=== PATIENT | female | born 1985 | race Caucasian/White ===

== ENCOUNTER 2016-12-13 19:49 | Emergency (ER) | payer OTHER ==
[2016-12-13] MEDS ORDERED: AMOX/CLAV 875 MG/125 MG TABLET PO STA (20:03)
[2016-12-13] MEDS ORDERED: AMOX/CLAV 875 MG/125 MG TABLET PO ONE (20:16)
== END 2016-12-13 20:22 | disposition home or self-care (01) ==
DX: S61.251A Open bite of left index finger without damage to nail, initial encounter (principal); W55.01XA Bitten by cat, initial encounter; L03.012 Cellulitis of left finger; R03.0 Elevated blood-pressure reading, without diagnosis of hypertension
CPT/HCPCS: 99283; A9270

== ENCOUNTER 2017-04-15 12:01 | Outpatient (CLI) | payer OTHER ==
--- NOTE | 2017-04-15 19:42 | XRAY Report ---
THREE VIEW RIGHT FOOT: 04/15/2017 CLINICAL INDICATION: Foot pain. AP, lateral, oblique views of the right foot demonstrate no evidence of fracture or dislocation. The joint spaces are preserved. No radiopaque foreign body is seen in the soft tissues. IMPRESSION: NORMAL RIGHT FOOT. JOB #: [id number] EXT JOB #:[id number]
--- NOTE | 2017-04-15 19:43 | XRAY Report ---
THREE VIEW RIGHT KNEE: 04/15/2017 CLINICAL INDICATION: Pain. AP, lateral, sunrise views of the right knee demonstrate no evidence of fracture or dislocation. The joint spaces are preserved. No radiopaque foreign body is seen in the soft tissues. IMPRESSION: NORMAL RIGHT KNEE. JOB #: [id number] EXT JOB #:[id number]
== END 2017-04-15 12:02 | disposition home or self-care (01) ==
LOC: DI 12:01
PROVIDERS: ATTEND Nurse Practitioner Family
DX: M25.561 Pain in right knee (principal); M79.671 Pain in right foot

== ENCOUNTER 2017-05-16 08:00 | Outpatient (CLI) | payer OTHER | END 2017-05-16 08:01 | disposition home or self-care (01) | LOC: LAB.R 08:00 | PROVIDERS: ATTEND Registered Nurse | DX: R10.2 Pelvic and perineal pain (principal) | CPT/HCPCS: 87491; 87591 ==

== ENCOUNTER 2017-05-16 11:23 | Outpatient (CLI) | payer OTHER ==
[2017-05-17 11:16] LABS: PROGESTERONE <0.5 ng/mL
[2017-05-19 21:56] LABS: DHEA SULFATE 105 mcg/dL (23-266)
== END 2017-05-16 11:24 | disposition home or self-care (01) ==
LOC: LAB 11:23
PROVIDERS: ATTEND Registered Nurse
DX: F34.89 Other specified persistent mood disorders (principal); R10.2 Pelvic and perineal pain
CPT/HCPCS: 36415; 81599; 82627; 82670; 84144; 87491; 87591

== ENCOUNTER 2017-05-19 15:47 | Outpatient (CLI) | payer OTHER ==
--- NOTE | 2017-05-20 12:21 | Ultrasound Report ---
PELVIC ULTRASOUND: 05/19/2017 CLINICAL INDICATION: Pelvic pain. TECHNIQUE: Transabdominal pelvic ultrasound performed for global evaluation. Transvaginal pelvic ul trasound performed for detailed evaluation. Real-time scanning performed and static images obtained. FINDINGS: The uterus is retroverted, measuring 8.6 x 5.1 x 3.4 cm. The endometrial echo complex mark sures 2 mm. No focal myometrial lesion is present. The right ovary measures 2.0 x 1.6 x 1.0 cm, and is unremarkable. The left ovary measures 4.5 x 2.6 x 2.2 cm, and contains a 2.4 x 2.0 x 1.8 cm foll icle. No free fluid is present. IMPRESSION: LEFT OVARIAN FOLLICLE. JOB #: [id number] EXT JOB #:[id number]
== END 2017-05-19 15:48 | disposition home or self-care (01) ==
LOC: DI 15:47
PROVIDERS: ATTEND Registered Nurse
DX: R10.2 Pelvic and perineal pain (principal)
CPT/HCPCS: 76830; 76856

== ENCOUNTER 2018-03-04 10:15 | Outpatient (CLI) | payer OTHER ==
--- NOTE | 2018-03-04 11:16 | XRAY Report ---
Procedure Date: 03/04/2018 Accession Number: [id number] / [id number] Procedure: XR - Foot 3 View RT CPT Code: FULL RESULT: EXAM: Foot 3 View RT DATE: 03/04/2018 10:33 AM CLINICAL HISTORY: EXTREME PAIN RT FOOT COMPARISON: 04/15/2017. TECHNIQUE: 3 views. FINDINGS: Bones: Normal. No fractures or bone lesions. Joints: Normal. No subluxations. Soft Tissues: Normal. No soft tissue swelling. IMPRESSION: Normal foot radiography. If there is a specific focal pain, imaging could be reviewed with the radiologist for correlation. RADIA
== END 2018-03-04 10:16 | disposition home or self-care (01) ==
LOC: DI 10:15
PROVIDERS: ATTEND Podiatrist
DX: M79.671 Pain in right foot (principal)

== ENCOUNTER 2018-10-21 13:36 | Outpatient (CLI) | payer OTHER | END 2018-10-21 13:37 | disposition home or self-care (01) | LOC: LAB 13:36 | PROVIDERS: ATTEND Psychiatry & Neurology Neurology | DX: R56.9 Unspecified convulsions (principal) | CPT/HCPCS: 36415; 80175 ==

== ENCOUNTER 2020-02-14 17:35 | Outpatient (CLI) | payer OTHER ==
--- NOTE | 2020-02-14 17:56 | XRAY Report ---
PROCEDURE: Tib/Fib RT INDICATIONS: PAIN IN LOWER RIGHT LIMB TECHNIQUE: 2 views of the tibia and fibula were acquired. COMPARISON: None FINDINGS: Bones: No fractures or dislocations. No suspicious bony lesions. Soft tissues: No suspicious soft tissue calcifications or masses. IMPRESSION: Unremarkable radiographic examination of right lower leg. Reviewed by: Garrick Banuelos MD on 02/14/2020 5:55 PM PDT Approved by: Garrick Banuelos MD on 02/14/2020 5:55 PM PDT Station ID: [id number]
== END 2020-02-14 17:36 | disposition home or self-care (01) ==
LOC: DI.S 17:35
PROVIDERS: ATTEND Registered Nurse
DX: M79.604 Pain in right leg (principal)

== ENCOUNTER 2020-05-19 14:50 | Outpatient (CLI) | payer OTHER | END 2020-05-19 14:51 | disposition home or self-care (01) | LOC: LAB 14:50 | PROVIDERS: ATTEND Psychiatry & Neurology Neurology | DX: R56.9 Unspecified convulsions (principal) | CPT/HCPCS: 36415; 80175 ==

== ENCOUNTER 2020-12-15 09:54 | Outpatient (CLI) | payer OTHER ==
[2020-12-15 15:03] LABS: BASOPHILS % (AUTO) 0.5 %; EOSINOPHILS # (AUTO) 0.5 10^3/uL (0.0-0.7); EOSINOPHILS % (AUTO) 7.5 %; HGB - HEMOGLOBIN 12.6 g/dL (12.0-16.0); LYMPHOCYTES # (AUTO) 1.8 10^3/uL (1.5-3.5); LYMPHOCYTES % (AUTO) 29.8 %; MEAN CORPUSCULAR HEMOGLOBIN 29.9 pg (27.0-31.0); MEAN CORPUSCULAR HGB CONC 30.7 g/dL (32.0-36.0); MEAN CORPUSCULAR VOLUME 97.2 fL (81.0-99.0); MEAN PLATELET VOLUME 10.5 fL (7.9-10.8); MONOCYTES # (AUTO) 0.4 10^3/uL (0.0-1.0); NEUTROPHILS # (AUTO) 3.4 10^3/uL (1.5-6.6); PLT - PLATELET COUNT 313 10^3/uL (130-450); RED BLOOD COUNT 4.22 10^6/uL (4.20-5.40); RED CELL DISTRIBUTION WIDTH 12.4 % (12.0-15.0); WHITE BLOOD COUNT 6.1 x10^3/uL (4.8-10.8)
[2020-12-15 15:45] LABS: ALBUMIN 4.6 g/dL (3.2-5.5); ALBUMIN/GLOBULIN RATIO 1.4 (1.0-2.2); ALKALINE PHOSPHATASE 58 IU/L (42-121); ALT ALANINE AMINOTRANSFERASE 16 IU/L (10-60); AST ASPARTATE AMINOTRANSFERASE 19 IU/L (10-42); BILIRUBIN,TOTAL 0.6 mg/dL (0.2-1.0); BUN - BLOOD UREA NITROGEN 26 mg/dL (6-20); CALCIUM 9.4 mg/dL (8.5-10.3); CARBON DIOXIDE - CO2 27 mmol/L (21-32); CHLORIDE 105 mmol/L (101-111); CHOL/HDL RATIO 3.7 (<4.4); CHOLESTEROL 192 mg/dL; GFR - MDRD 62 (>89); GLUCOSE 97 mg/dL (70-100); HDL CHOLESTEROL 52 mg/dL; LDL CHOLESTEROL,CALCULATED 125 mg/dL; LDL/HDL RATIO 2.4 (<4.4); POTASSIUM 4.1 mmol/L (3.5-5.0); SODIUM 139 mmol/L (135-145); TOTAL PROTEIN 7.8 g/dL (6.7-8.2); TRIGLYCERIDES 76 mg/dL; VLDL CHOLESTEROL 15 mg/dL
[2020-12-15 15:58] LABS: THYROID STIMULATING HORMONE 1.33 uIU/mL (0.34-5.60)
[2020-12-15 20:29] LABS: ESTIMATED AVERAGE GLUCOSE 105 mg/dL (70-100); HEMOGLOBIN A1c% 5.3 % (4.27-6.07)
== END 2020-12-15 09:55 | disposition home or self-care (01) ==
LOC: LAB.S 09:54
PROVIDERS: ATTEND Registered Nurse
DX: G40.909 Epilepsy, unspecified, not intractable, without status epilepticus (principal); Z13.1 Encounter for screening for diabetes mellitus
CPT/HCPCS: 36415; 80053; 80061; 83036; 83721; 84443; 85025

== ENCOUNTER 2021-01-18 20:03 | Emergency (ER) | payer OTHER ==
[2021-01-18 20:13] VITALS: BP 124/85
[2021-01-18] MEDS ORDERED: TETANUS/DIPHTHERIA/PERTUSSIS 0.5 ML SYRINGE IM ONE (20:14)
[2021-01-18] MEDS ORDERED: HYDROcod/ACETAM 5/325 MG TABLET PO STA (20:14)
[2021-01-18] MEDS ORDERED: AMOX/CLAV 875 MG/125 MG TABLET PO STA (20:14)
--- NOTE | 2021-01-18 20:18 | ED Physician Documentation ---
History of Present Illness - Stated complaint Stated Complaint: FACE INJURY - Chief complaint Chief Complaint: Trauma Hd/Nk - History obtained from History obtained from: Patient - Additonal information Additional information: She was bucked off her horse, landed back first into the ground and hit her left elbow and then the horses hoof hit her in the jaw. She has a wound on the inside of the mouth and jaw pain. No possibility of . No other head injury or loss of consciousness. No headache. 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 - Present Medications Home Medications: Ambulatory Orders Medication Instructions Recorded Confirmed Amox/Clav 875/125 [Augmentin] 1 each PO Q12H #10 tablet 01/18/21 HYDROcod/ACETAM 5/325 [[place] 5/325] 1 - 2 tab PO Q6H PRN #10 tablet 01/18/21 lamoTRIgine [Lamictal] 150 mg PO BID 01/18/21 01/18/21 - Allergies Allergies/Adverse Reactions: Allergies Allergy/AdvReac Type Severity Reaction Status Date / Time fluconazole Allergy Anaphylaxis Verified 01/18/21 20:13 - Social History Does the pt smoke?: No Smoking Status: Never smoker Does the pt drink ETOH?: No Does the pt have substance abuse?: No - Immunizations Immunizations are current?: Yes Immunizations: TDAP current <10years - POLST Patient has POLST: No PD ED PE NORMAL - Vitals Vital signs reviewed: Yes - General General: Alert and oriented X 3, No acute distress - HEENT HEENT: PERRL, EOMI, Other (About a 5 mm puncture wound on the inner lip low down. Jaw is mildly tender but has good range of motion and no other facial bony tenderness.) - Neck Neck: Supple, no meningeal sign, No bony TTP - Cardiac Cardiac: RRR, No murmur - Respiratory Respiratory: No respiratory distress, Clear bilaterally - Abdomen Abdomen: Non tender - Back Back: No CVA TTP, Other (Mild mid lumbar spine tenderness.) - Derm Derm: Normal color, Warm and dry - Extremities Extremities: Other (There is some bruising on the medial side of the left elbow and some tenderness over the radial head and olecranon which is mild but full range of motion.) - Neuro Neuro: Alert and oriented X 3, 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 Also kind of a puncture wound/tissue avulsion on the inside of the lower lip. X-rays of the mandible, left elbow, and lumbar spine obtained. I am prescribing a short course of short-acting opioid pain medication for this patient. 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 I have discussed that the opioids are for short term therapy only, and will not be refilled from the ED. Departure - Departure Disposition: 01 Home, Self Care Clinical Impression: Lip laceration Qualifiers: Encounter type: initial encounter Qualified Code(s): S01.511A - Laceration without foreign body of lip, initial encounter Contusion of mandibular joint area Qualifiers: Encounter type: initial encounter Qualified Code(s): S00.83XA - Contusion of other part of head, initial encounter Left elbow contusion Qualifiers: Encounter type: initial encounter Qualified Code(s): S50.02XA - Contusion of left elbow, initial encounter Back contusion Qualifiers: Encounter type: initial encounter Laterality: unspecified laterality Qualified Code(s): S20.229A - Contusion of unspecified back wall of thorax, initial encounter Condition: Good Instructions: ED Low Back Pain Injury, ED Laceration Mouth Prescriptions: Amox/Clav 875/125 [Augmentin] 1 each PO Q12H #10 tablet HYDROcod/ACETAM 5/325 [[place] 5/325] 1 - 2 tab PO Q6H PRN #10 tablet PRN Reason: Pain Comments: I think the lip laceration will heal pretty quickly, until it closes over though I would recommend that you do not eat anything that would create small chunks that could go into the hole. This would include crackers and tortilla chips. You can rinse it out with water and generally do a normal dental hygiene routine. I am prescribing a short course of narcotic pain medication for you. These are potentially dangerous and addictive medications that should be used carefully. These medications may constipate you. Take an jjiq-dqx-gstyxoa stool softener (docusate) twice daily with plenty of water while taking these medications. If you go 24 hours without a bowel movement, take piuk-oqy-wfppocz miralax, per package instructions. Do not drink or drive while taking these medications. If you received narcotic or sedating medications while in the emergency department, do not drive for 24 hours. Store this medication in a safe, secure place and out of reach of children. It is a violation of federal law to give or sell this medication to another person or to use in a manner other than prescribed. The ED will not refill narcotic prescriptions, including prescriptions lost or stolen. To dispose of unwanted medications: 1. [facility] at [address] in [place] has a medication drop box. They accept prescription medications (in pill form) Friday through Friday 9:00 a.m. to 5:00 p.m. 2. The [facility] [employer] accepts prescription medications (in pill form only) for disposal year round. Call for more information. 3. Contact the [facility] for the next [facility] sponsored prescription drug collection event. , [phone], or [phone]; Note that many narcotic pain relievers also contain Tylenol/acetaminophen. Please ensure that your total dose of acetaminophen from all sources does not exceed 3 g (3000 mg) per day.
[2021-01-18] MEDS ORDERED: HYDROcod/ACET 5/325 Prepack 4 PO STA (21:28)
--- NOTE | 2021-01-18 22:01 | XRAY Report ---
PROCEDURE: Elbow 3 View LT INDICATIONS: elbow inj TECHNIQUE: 3 views of the elbow were acquired. COMPARISON: None FINDINGS: Bones: No fractures or dislocations. No suspicious bony lesions. Soft tissues: No elbow joint effusion. No suspicious soft tissue calcifications. IMPRESSION: No definite fracture however follow-up radiographs in 10 days could be performed if the patient's sym ptoms do not improve to exclude occult fracture/assess for healing sclerosis. Reviewed by: Ayad Hardy MD on 01/18/2021 10:00 PM PDT Approved by: Ayad Hardy MD on 01/18/2021 10:00 PM PDT Station ID: [id number]
--- NOTE | 2021-01-18 22:02 | XRAY Report ---
PROCEDURE: Lumbar Spine 2 View INDICATIONS: back inj TECHNIQUE: 3 views of the lumbar spine were acquired. COMPARISON: None. FINDINGS: No fracture. Scattered multilevel endplate spurring and diffuse facet arthropathy. Mild narrowing of the L5-S1 disc space. Mild bilateral hip joint degeneration. Bilateral sacroiliac s clerosis and spurring. IMPRESSION: No fracture. Lower lumbar spondylosis and facet disease. Reviewed by: Ayad Hardy MD on 01/18/2021 10:01 PM PDT Approved by: Ayad Hardy MD on 01/18/2021 10:01 PM PDT Station ID: [id number]
--- NOTE | 2021-01-18 22:04 | XRAY Report ---
PROCEDURE: Mandible Bilat INDICATIONS: jaw inj TECHNIQUE: 7 views of the mandible were acquired. COMPARISON: None. FINDINGS: Bones: No fractures or dislocations. No suspicious bony lesions. Soft tissues: Visualized sinuses appear clear. No suspicious soft tissue densities. IMPRESSION: No radiographically identified fracture. If there is persistent high clinical suspicion, CT maxillofa cial could be performed. Reviewed by: Ayad Hardy MD on 01/18/2021 10:03 PM PDT Approved by: Ayad Hardy MD on 01/18/2021 10:03 PM PDT Station ID: [id number]
== END 2021-01-18 22:14 | disposition home or self-care (01) ==
LOC: ED 20:03
DX: S01.511A Laceration without foreign body of lip, initial encounter (principal); S00.83XA Contusion of other part of head, initial encounter; S50.02XA Contusion of left elbow, initial encounter; S30.0XXA Contusion of lower back and pelvis, initial encounter; V80.010A Animal-rider injured by fall from or being thrown from horse in noncollision accident, initial encounter; W55.12XA Struck by horse, initial encounter; Y93.52 Activity, horseback riding; Z23 Encounter for immunization
CPT/HCPCS: 70110; 72100; 73080; 90471; 90715; 99281; 99283; A9270

== ENCOUNTER 2021-12-04 17:14 | Outpatient (CLI) | payer MEDICAID ==
--- NOTE | 2021-12-05 09:42 | XRAY Report ---
PROCEDURE: Cervical Spine 2 View INDICATIONS: Bilateral hand numbness. TECHNIQUE: 3 view(s) of the cervical spine were acquired. COMPARISON: None. FINDINGS: Bones: No fractures or dislocations to the C7 level. The lateral masses of C1 appear intact on the odontoid view. No suspicious bony lesions. Intervertebral disc height is normal at all levels. Soft tissues: No prevertebral soft tissue swelling. IMPRESSION: No fracture to the level of the C7 vertebral body. No acute osseous lesion. If there is continued clinical concern for pathology, then MRI should be considered for further evaluation. Reviewed by: Callie Grove MD, PhD on 12/05/2021 9:41 AM PDT Approved by: Callie Grove MD, PhD on 12/05/2021 9:41 AM PDT Station ID: [id number]
--- NOTE | 2021-12-05 09:43 | XRAY Report ---
PROCEDURE: Knee 3 View RT INDICATIONS: Pain TECHNIQUE: 3 views of the right knee(s) were acquired. COMPARISON: None. FINDINGS: Bones: No fractures or dislocations. No suspicious bony lesions. Soft tissues: No joint effusion. No suspicious soft tissue calcifications. IMPRESSION: No fracture. No osseous lesion. If symptoms and/or clinical concern for pathology persis ts, further assessment with repeat plain film radiographs (7-10 days) or advanced imaging (CT, MR, naheed ne scan) should be considered. Reviewed by: Callie Grove MD, PhD on 12/05/2021 9:42 AM PDT Approved by: Callie Grove MD, PhD on 12/05/2021 9:42 AM PDT Station ID: [id number]
--- NOTE | 2021-12-05 09:44 | XRAY Report ---
PROCEDURE: Shoulder 3 View RT INDICATIONS: Pain TECHNIQUE: 3 views of the shoulder were acquired. COMPARISON: None. FINDINGS: Bones: No fractures or dislocations. No suspicious bony lesions. Visualized ribs appear intact. Mi ld right acromioclavicular joint osteoarthritis. Soft tissues: No suspicious soft tissue calcifications. IMPRESSION: Mild right acromioclavicular joint osteophytosis. No fracture. No acute osseous lesion. If symptoms and/or clinical concern for pathology persists, fur ther assessment with repeat plain film radiographs (7-10 days) or advanced imaging (CT, MR, bone scan ) should be considered. Reviewed by: Callie Grove MD, PhD on 12/05/2021 9:42 AM PDT Approved by: Callie Grove MD, PhD on 12/05/2021 9:42 AM PDT Station ID: [id number]
== END 2021-12-04 17:15 | disposition home or self-care (01) ==
LOC: DI.S 17:14
PROVIDERS: ATTEND Family Medicine
DX: M19.011 Primary osteoarthritis, right shoulder (principal); M25.561 Pain in right knee; R20.0 Anesthesia of skin

== ENCOUNTER 2022-01-16 18:22 | Emergency (ER) | payer MEDICAID ==
--- NOTE | 2022-01-16 18:37 | ED Physician Documentation ---
PD HPI LOWER EXT INJURY - Stated complaint Stated Complaint: L ANKLE PX - Chief complaint Chief Complaint: Ext Problem - History obtained from History obtained from: Patient (She is been having left ankle pain for the last 5 weeks or so. There was no trauma until today when she slipped and fell and made it worse. Also injured the left fourth finger. 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 - Present Medications Home Medications: Ambulatory Orders Medication Instructions Recorded Confirmed Amox/Clav 875/125 [Augmentin] 1 each PO Q12H #10 tablet 01/18/21 HYDROcod/ACETAM 5/325 [[place] 5/325] 1 - 2 tab PO Q6H PRN #10 tablet 01/18/21 lamoTRIgine [Lamictal] 150 mg PO BID 01/18/21 01/18/21 - Allergies Allergies/Adverse Reactions: Allergies Allergy/AdvReac Type Severity Reaction Status Date / Time fluconazole Allergy Anaphylaxis Verified 01/16/22 18:32 - Social History Does the pt smoke?: No Smoking Status: Never smoker Does the pt drink ETOH?: No Does the pt have substance abuse?: No - Immunizations Immunizations are current?: Yes Immunizations: TDAP current <10years - POLST Patient has POLST: No PD ED PE NORMAL - Vitals Vital signs reviewed: Yes - General General: Alert and oriented X 3, No acute distress - HEENT HEENT: PERRL, EOMI - Extremities Extremities: Other (Tender over the PIP of the left fourth finger with mildly limited range of motion there but no ligamentous laxity. Tender over the lateral malleolus of the left ankle more than the ATFL and talar dome. No posterior tenderness, no foot tenderness, no tenderness of the plantar fascia.) - Neuro Neuro: Alert and oriented X 3, Normal speech Results - Vitals Vitals: Vital Signs - 24 hr 01/16/22 18:29 Temperature 36.2 C L Heart Rate 85 Respiratory 16 Rate Blood Pressure 135/97 H O2 Saturation 99 Oxygen O2 Source Room air - Rads (name of study) L 4th finger Radiology: EMP read contemporaneously (ossification DIP, she is not tender there. Pain is at PIP.) L ankle 3v Radiology: EMP read contemporaneously (Nad) Departure - Departure Disposition: Home, Self Care Clinical Impression: Left ankle pain, Sprain of finger of left hand Condition: Good Record reviewed to determine appropriate education?: Yes Instructions: ED Sprain Finger, ED Sprain Ankle Follow-Up: Ahmet Greene, DPM [Physician No Access] - Comments: Tylenol or ibuprofen for pain. Return if worse. Reasonable to followup with podiatry given ongoing pain.
--- NOTE | 2022-01-16 19:25 | XRAY Report ---
PROCEDURE: Ankle 3 View LT INDICATIONS: ankle inj TECHNIQUE: 3 views of the ankle were acquired. COMPARISON: None FINDINGS: Bones: No fractures or dislocations. Ankle mortise is normally aligned. No suspicious bony lesions . Soft tissues: No tibiotalar joint effusion. Achilles tendon appears normal. IMPRESSION: No visualized acute fracture or dislocation. However, occult injury cannot be excluded. Recommend short interval imaging follow-up in 7-10 days as clinically indicated for additional evalua tion. Reviewed by: Jerica Jauregui MD on 01/16/2022 7:24 PM PDT Approved by: Jerica Jauregui MD on 01/16/2022 7:24 PM PDT Station ID: [id number]
--- NOTE | 2022-01-16 19:26 | XRAY Report ---
PROCEDURE: Finger(s) LT INDICATIONS: L 4th finger inj TECHNIQUE: AP hand, 3 views of the fourth finger(s) acquired. COMPARISON: None FINDINGS: Bones: Rounded ossification is noted overlying the fourth DIP joint. No suspicious bony lesions. Soft tissues: No suspicious soft tissue calcifications. IMPRESSION: Rounded ossification at the fourth DIP joint. Avulsion fracture cannot be excluded. Recommend follow- up imaging in 7-10 days. Reviewed by: Jerica Jauregui MD on 01/16/2022 7:24 PM PDT Approved by: Jerica Jauregui MD on 01/16/2022 7:24 PM PDT Station ID: [id number]
[2022-01-16 19:45] VITALS: BP 119/75
== END 2022-01-16 19:45 | disposition home or self-care (01) ==
LOC: ED 18:22
DX: S93.402A Sprain of unspecified ligament of left ankle, initial encounter (principal); S63.615A Unspecified sprain of left ring finger, initial encounter; W01.0XXA Fall on same level from slipping, tripping and stumbling without subsequent striking against object, initial encounter
CPT/HCPCS: 99282; 99284

== ENCOUNTER 2022-05-05 21:17 | Emergency (ER) | payer MEDICAID ==
[2022-05-05 21:27] VITALS: BP 133/79
--- NOTE | 2022-05-05 21:30 | ED Physician Documentation ---
History of Present Illness - Stated complaint Stated Complaint: RT FOOT PX - Additonal information Additional information: She presents here today for pain on the dorsum of her foot. Her 1400 pound horse stepped on the foot 2 days ago. Since then she has had swelling and ecchymosis. She is ambulatory though painful. She does have a history of previous ankle fracture in this extremity. 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 - Present Medications Home Medications: Ambulatory Orders Medication Instructions Recorded Confirmed No Known Home Medications 05/05/22 05/05/22 - Allergies Allergies/Adverse Reactions: Allergies Allergy/AdvReac Type Severity Reaction Status Date / Time fluconazole Allergy Anaphylaxis Verified 05/05/22 21:27 - Social History Does the pt smoke?: No Smoking Status: Never smoker Does the pt drink ETOH?: No Does the pt have substance abuse?: No - Immunizations Immunizations are current?: Yes Immunizations: TDAP current <10years - POLST Patient has POLST: No PD ED PE EXPANDED - Extremities Extremities: Right foot (Mild swelling and moderate ecchymosis on the dorsum of the right foot extending from the mid to lateral side. Most the tenderness is elicited over the fourth and fifth metacarpals. Mild pain at the base of the fifth metacarpal. Full range of motion of the ankle in all planes. 2+ DP pulse) Results - Vitals Vitals: Vital Signs - 24 hr 05/05/22 21:25 Temperature 36.3 C L Heart Rate 79 Respiratory 17 Rate Blood Pressure 133/79 H O2 Saturation 100 Oxygen O2 Source Room air - Rads (name of study) Right foot Radiology: EMP read indepedently (No acute fracture osseous lesion or dislocation) PD MEDICAL DECISION MAKING - ED course Complexity details: reviewed results, considered differential, d/w patient ED course: 36-year-old female presents emergency department for evaluation of 2 days right foot pain that began after her horse accidentally stepped on the top of her foot. She describes more of a glancing blow than a direct injury. She has been ambulatory on the foot. My interpretation of the initial x-ray imaging is that there is no acute fracture. I favor she likely has a contusion given that she is bearing nearly full weight on the foot and has a minimal limp. Routine care and emergent return precautions were discussed. Departure - Departure Disposition: 01 Home, Self Care Clinical Impression: Contusion of right foot Qualifiers: Encounter type: initial encounter Qualified Code(s): S90.31XA - Contusion of right foot, initial encounter Condition: Stable Instructions: ED Contusion Lower Extr Ch Comments: Vianca the x-ray of your foot looks good to me. It does not appear that there are any broken bones. If the radiologist finds otherwise we will notify you. However it looks like the pain is simply a contusion or bruising. I would expect this to be getting better over the next 1 to 2 weeks. She can take Tylenol Motrin [id number] for any discomfort. Return to the emergency department if you find that the pain is not improving as you would anticipate over the next few weeks or sooner if you have any concerns of severe pain, redness swelling or concerns of infection.
--- NOTE | 2022-05-05 21:49 | XRAY Report ---
PROCEDURE: Foot 3 View RT INDICATIONS: pain TECHNIQUE: 3 views of the foot were acquired. COMPARISON: 03/04/2018. FINDINGS: Bones: No fractures or dislocations. There are 2 surgical screws within the second metatarsal head. No suspicious bony lesions. Soft tissues: No tibiotalar joint effusion. Achilles tendon appears normal. IMPRESSION: 1. No fracture or dislocation. Reviewed by: Jim Zhao MD on 05/05/2022 9:48 PM PDT Approved by: Jim Zhao MD on 05/05/2022 9:48 PM PDT Station ID: [id number]
== END 2022-05-05 21:52 | disposition home or self-care (01) ==
LOC: ED 21:17
DX: S90.31XA Contusion of right foot, initial encounter (principal); W55.19XA Other contact with horse, initial encounter
CPT/HCPCS: 99281; 99283

== ENCOUNTER 2022-08-23 10:07 | Emergency (ER) | payer MEDICAID ==
[2022-08-23 10:39] LABS: BASOPHILS % (AUTO) 0.2 %; EOSINOPHILS # (AUTO) 0.3 10^3/uL (0.0-0.7); EOSINOPHILS % (AUTO) 3.8 %; HCT - HEMATOCRIT 40.4 % (37.0-47.0); HGB - HEMOGLOBIN 12.8 g/dL (12.0-16.0); LYMPHOCYTES # (AUTO) 1.9 10^3/uL (1.5-3.5); LYMPHOCYTES % (AUTO) 22.4 %; MEAN CORPUSCULAR HGB CONC 31.7 g/dL (32.0-36.0); MEAN CORPUSCULAR VOLUME 94.6 fL (81.0-99.0); MONOCYTES # (AUTO) 0.6 10^3/uL (0.0-1.0); MONOCYTES % (AUTO) 6.5 %; NEUTROPHILS # (AUTO) 5.7 10^3/uL (1.5-6.6); NEUTROPHILS % (AUTO) 66.9 %; PLT - PLATELET COUNT 265 10^3/uL (130-450); RED BLOOD COUNT 4.27 10^6/uL (4.20-5.40); RED CELL DISTRIBUTION WIDTH 12.5 % (12.0-15.0); WHITE BLOOD COUNT 8.6 x10^3/uL (4.8-10.8)
--- NOTE | 2022-08-23 10:40 | XRAY Report ---
PROCEDURE: Chest 1 View X-Ray INDICATIONS: Chest pain TECHNIQUE: One view of the chest was acquired. COMPARISON: None. FINDINGS: Surgical changes and devices: None. Lungs and pleura: No pleural effusions or pneumothorax. Lungs are clear. Mediastinum: Mediastinal contours appear normal. Heart size is normal. Bones and chest wall: No suspicious bony lesions. Overlying soft tissues appear unremarkable. IMPRESSION: No evidence acute pulmonary process. Reviewed by: Rambo Briscoe MD on 08/23/2022 10:38 AM [facility] Approved by: Rambo Briscoe MD on 08/23/2022 10:38 AM [facility] Station ID: [id number]
--- NOTE | 2022-08-23 10:42 | ED Physician Documentation ---
PD HPI CHEST PAIN - Stated complaint Stated Complaint: CHEST PAIN, RIB PAIN, SHORTNESS OF BREATH - Chief complaint Chief Complaint: Cardiac - History obtained from History obtained from: Patient - History of Present Illness Timing - onset: How many days ago (has had intrascapular pain for the past 4 days, worse with lifting and movement. Today with substernal to right chest pain, upper abd pain.) Timing - onset during: Rest Timing - duration: Hours (the right abd/chest pain has bee fro several hours this morning.) Timing - details: Abrupt onset, Still present, Waxing and waning Quality: Aching, Sharp, Pain Location: Right chest, Epigastric (to right upper abd) Radiation: Back Improved by: No: Rest Worsened by: Inspiration, Movement. No: Eating Associated symptoms: Shortness of air. No: Nausea, Vomiting, Feeling faint / dizzy, Palpitations, Cough Similar symptoms before: Has not had sx before Recently seen: Not recently seen Review of Systems Constitutional: denies: Fever, Chills Nose: denies: Rhinorrhea / runny nose, Congestion Throat: denies: Sore throat Cardiac: denies: Palpitations, Pedal edema, Calf pain Respiratory: denies: Cough, Wheezing GI: denies: Nausea, Vomiting, Diarrhea Skin: denies: Rash, Lesions Neurologic: denies: Focal weakness, Numbness, Near syncope PD PAST MEDICAL HISTORY - Past Medical History Past Medical History: Yes Cardiovascular: None Respiratory: None Neuro: Seizure disorder Endocrine/Autoimmune: None - Past Surgical History 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 - Present Medications Home Medications: Ambulatory Orders Medication Instructions Recorded Confirmed HYDROcod/ACETAM 5/325 [Arcade 5/325] 1 ea PO Q6H PRN #18 tablet 08/23/22 Meloxicam [Mobic] 7.5 mg PO BID 10 Days #20 tablet 08/23/22 lamoTRIgine [Lamictal] 150 mg PO BID 08/23/22 08/23/22 - Allergies Allergies/Adverse Reactions: Allergies Allergy/AdvReac Type Severity Reaction Status Date / Time fluconazole Allergy Anaphylaxis Verified 08/23/22 10:19 - Social History Does the pt smoke?: No Smoking Status: Never smoker Does the pt drink ETOH?: No Does the pt have substance abuse?: No - Immunizations Immunizations are current?: Yes Immunizations: TDAP current <10years - POLST Patient has POLST: No PD ED PE NORMAL - Vitals Vital signs reviewed: Yes - General General: Alert and oriented X 3, No acute distress, Well developed/nourished - Neck Neck: Supple, no meningeal sign, No adenopathy - Cardiac Cardiac: RRR, No murmur - Respiratory Respiratory: No respiratory distress, Clear bilaterally - Abdomen Abdomen: Normal bowel sounds, Soft, Non distended, No organomegaly, Other (some tenderness upper abd right to epigastric area without guarding nor rebound. ) - Back Back: No CVA TTP, No spinal TTP - Derm Derm: Normal color, Warm and dry - Extremities Extremities: No edema, No calf tenderness / cord - Neuro Neuro: Alert and oriented X 3, No motor deficit, Normal speech Results - Vitals Vitals: Vital Signs - 24 hr 08/23/22 08/23/22 08/23/22 12:30 13:00 13:21 Heart Rate 69 64 67 Respiratory 15 14 15 Rate Blood Pressure 94/70 109/74 109/74 O2 Saturation 98 100 100 Oxygen O2 Source Room air - EKG (time done) 10:21 Rate: Rate (enter#) (76) Rhythm: NSR [place]: Normal Intervals: Normal DE QRS: Normal Ischemia: Normal ST segments. No: ST elevation c/w ischemia, ST depression Compare to prior EKG: Old EKG unavailable - Labs Labs: Laboratory Tests 08/23/22 08/23/22 08/23/22 10:30 10:30 10:30 WBC 8.6 RBC 4.27 Hgb 12.8 Hct 40.4 MCV 94.6 MCH 30.0 MCHC 31.7 L RDW 12.5 Plt Count 265 MPV 10.0 Neut # (Auto) 5.7 Lymph # (Auto) 1.9 [place] # (Auto) 0.6 Eos # (Auto) 0.3 Baso # (Auto) 0.0 Absolute Nucleated RBC 0.00 Nucleated RBC % 0.0 Sodium 134 L Potassium 3.7 Chloride 102 Carbon Dioxide 23 Anion Gap 9.0 BUN 17 Creatinine 0.8 Estimated GFR (MDRD) 80 L Glucose 86 Calcium 8.9 Total Bilirubin 0.7 AST 18 ALT 14 Alkaline Phosphatase 61 Troponin I High Sens < 2.3 L Total Protein 7.3 Albumin 4.2 Globulin 3.1 Albumin/Globulin Ratio 1.4 Lipase 32 - Rads (name of study) chest xray Radiology: Prelim report reviewed, EMP read indepedently (no cardiopulmonary process acutely), See rad report RUQ abd U/S Radiology: Prelim report reviewed (unremarkable abd ultrasound. GB without stones nor wall thickening. ), See rad report PD Medical Decision Making - ED course Complexity details: reviewed old records (No TIANNA form and external pharmacy review does not show pain meds scripts. ), reviewed results (labs and imaging are negative which excludes more significant causes. Still to consider musculoskeletal. Consider GB spasm without stones though this is fairly uncommon. 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 However now with abd/chest pain and stomach/gallbladder pain can present to the back. Will want to assess for that. Also to eval for heart/lung causes with ECG/CXR/trop. She is low risk by PERC rules so PE excluded. No recent illness, so not sounding pleuritic and is not that character of the pain. Departure - Departure Disposition: Home, Self Care Clinical Impression: Chest pain, Back pain Condition: Stable Record reviewed to determine appropriate education?: Yes Instructions: ED Chest Pain Atypical Unkn Cause Prescriptions: Meloxicam [Mobic] 7.5 mg PO BID 10 Days #20 tablet HYDROcod/ACETAM 5/325 [Arcade 5/325] 1 ea PO Q6H PRN #18 tablet PRN Reason: Pain Comments: Its unclear the cause of your pain. Your ultrasound did not show any acute abnormalities of the gallbladder kidney area. Your blood tests are normal as well without any signs of inflammation of the liver or pancreas. Your EKG and troponin test show no signs of heart injury/heart attack. At this point would presume musculoskeletal pain coming from your back and likely irritating the nerve that wraps around. We can treat this with anti- inflammatories of meloxicam twice daily with food for the next 7 to 10 days. To that add Tylenol every 4-6 hours if needed for pain or hydrocodone if needed for worse pain. Avoid heavy lifting and repetitive motion and such over the next several days to week as best you can. Recheck if not improved well over the next several days to week. Recheck if new symptoms develop such as fever, rash, cough. Also follow-up/recheck if persisting symptoms especially if timed around eating as there could be consideration for gallbladder spasms even though you do not have stones. This is fairly uncommon though. I sent your prescriptions to [facility] pharmacy. I am prescribing a short course of narcotic pain medication for you. These are potentially dangerous and addictive medications that should be used carefully. These medications may constipate you. Take an omim-[id number]-[id number] stool softener such as docusate twice daily with plenty of water while taking these medications. If you go 24 hours without a bowel movement, take svuk-wwd-[id number] MiraLAX, per package instructions. Do not drink or drive while taking these medications. If you received narcotic or sedating medications while in the emergency department do not drive for 24 hours. Store this medication in a safe, secure place and out of reach of children. It is a violation of federal law to give or sell this medication to another person or to use in a manner other than prescribed. The ED will not refill narcotic prescriptions, including prescriptions lost or stolen. You can dispose of unwanted medications at the [facility]'s office or at several pharmacies such as [facility]. Discharge Date/Time: 08/23/22 13:21
[2022-08-23 10:54] LABS: ALBUMIN 4.2 g/dL (3.2-5.5); ALBUMIN/GLOBULIN RATIO 1.4 (1.0-2.2); BILIRUBIN,TOTAL 0.7 mg/dL (0.2-1.0); CALCIUM 8.9 mg/dL (8.5-10.3); CREATININE 0.8 mg/dL (0.4-1.0); POTASSIUM 3.7 mmol/L (3.5-5.0); TOTAL PROTEIN 7.3 g/dL (6.7-8.2)
[2022-08-23] MEDS ORDERED: ACETAMINOPHEN 325 MG TABLET PO STA (11:09)
[2022-08-23] MEDS ORDERED: KETOROLAC 15 MG/ML VIAL IVP STA (11:09)
[2022-08-23 13:12] VITALS: BP 109/74
--- NOTE | 2022-08-23 13:28 | Ultrasound Report ---
PROCEDURE: Abdomen Limited INDICATIONS: upper abd/right back pain TECHNIQUE: Real-time focused scanning was performed of the abdomen, with image documentation. COMPARISON: None FINDINGS: Liver is unremarkable. Normal echo pattern. Gallbladder is unremarkable. No stones or wall thickening or pain. Biliary tree is normal in caliber. Common hepatic duct measures 4.5 mm. Pancreas is not well seen secondary to overlying bowel gas. Normal sized right kidney with no hydronephrosis. IMPRESSION: Unremarkable right upper quadrant ultrasound. Reviewed by: Rambo Briscoe MD on 08/23/2022 1:27 PM PST Approved by: Rambo Briscoe MD on 08/23/2022 1:27 PM PST Station ID: [id number]
== END 2022-08-23 13:21 | disposition home or self-care (01) ==
LOC: ED 10:07
DX: R07.9 Chest pain, unspecified (principal); M54.9 Dorsalgia, unspecified; R10.9 Unspecified abdominal pain
CPT/HCPCS: 36415; 71045; 76705; 80053; 83690; 84484; 85025; 93005; 96374; 99284; A9270

== ENCOUNTER 2023-06-02 13:41 | Outpatient (CLI) | payer MEDICAID ==
--- NOTE | 2023-06-02 18:19 | Ultrasound Report ---
PROCEDURE: Pelvic w/Transvaginal INDICATIONS: R LOWER QUAD ABD PAIN TECHNIQUE: Real-time scanning was performed of the pelvic organs, with image documentation. Additional endovagi nal scanning was necessary due to incomplete visualization of the adnexal and endometrial structures by transabdominal scanning. COMPARISON: 05/19/2017 FINDINGS: Uterus: Uterus is anteverted and normal in size at 8.6 x 4.3 x 5.2 cm. The myometrium is heterogene ous. The endometrium measures 3 mm in combined thickness. There is a midline anterior intramural ut erine fibroid measuring 1.0 x 1.1 x 1.2 cm. This was not identified on the prior study. Ovaries: The right ovary measures 3.0 x 2.4 x 2.8 cm, with a calculated ovarian volume of 10.5 cc. The left ovary measures 2.8 x 1.1 x 1.3 cm, with a calculated ovarian volume of 2.1 cc. The ovaries have a normal sonographic appearance. Less than 12 follicles can be seen in each ovary. No adnexal masses are seen. No cystic lesions measuring greater than 3 cm. Incidental note of a 2.2 cm right ova joanna cyst. Other: No pathologic free abdominal or pelvic fluid. IMPRESSION: Pelvis ultrasound without acute sonographic abnormalities. A 1.2 cm intrauterine fibroid identified. Reviewed by: Daniel Zaragoza MD on 06/02/2023 6:17 PM PDT Approved by: Daniel Zaragoza MD on 06/02/2023 6:17 PM PDT Station ID: [id number]
== END 2023-06-02 13:42 | disposition home or self-care (01) ==
LOC: DI 13:41
PROVIDERS: ATTEND Obstetrics & Gynecology
DX: D25.1 Intramural leiomyoma of uterus (principal)

== ENCOUNTER 2023-06-02 13:42 | Outpatient (CLI) | payer MEDICAID ==
--- NOTE | 2023-06-03 15:06 | Mammography Report ---
BILATERAL DIGITAL SCREENING MAMMOGRAM 3D/2D: 06/02/2023 CLINICAL: Routine screening. No prior exams were available for comparison. Both breasts are heterogeneously dense, which may obscure small masses (category c / 51-75% glandular tissue). There are multiple round and oval masses with circumscribed margins seen in both breasts. No significant masses, calcifications, or other findings are seen in either breast. IMPRESSION: BENIGN There are multiple, bilateral, round and oval benign appearing masses. There is no mammographic evid ence of malignancy. A 1 year screening mammogram is recommended. Based on Tyrer-Cuzick model (a risk assessment model), the patient's lifetime risk is 24.1% and her 1 0 year risk is 2.9%. If a patient has an elevated risk, a more comprehensive evaluation should be con sidered and/or a referral to a genetic counselor. The [place] [employer], [place] [employer], and NCCN Guidelines advise the consideration of Breast MRI as an adjunct to screening mammog александр in patients whose "Lifetime risk to develop breast cancer" is 20% or higher. This exam was interpreted at Station ID: [id number]. NOTE: For mammograms, a report in lay terms will be sent to the patient. Approximately 15% of breast malignancies will not be visualized mammographically. In the management of a palpable breast mass, a negative mammogram must not discourage biopsy of a clinically suspicious lesion. Electronically Signed By: Maribel Alonso M.D., PH.D eb/:06/02/2023 20:00:45 ACR BI-RADS Category 2: Benign Finding(s) 3342F PARENCHYMAL PATTERN: (D) - The breast(s) demonstrate(s) heterogeneously dense fibroglandular karen valencia. BI-RADS CATEGORY: (2) - 2 Mammogram [id number] 1 year screening LATERALITY: (B)
== END 2023-06-02 13:43 | disposition home or self-care (01) ==
LOC: DI 13:42
PROVIDERS: ATTEND Obstetrics & Gynecology
DX: Z12.31 Encounter for screening mammogram for malignant neoplasm of breast (principal); R92.333 Mammographic heterogeneous density, bilateral breasts

== ENCOUNTER 2023-06-05 11:47 | Emergency (ER) | payer OTHER, MEDICAID ==
[2023-06-05 12:09] VITALS: BP 135/80; O2SAT 100
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
== END 2023-06-05 12:41 | disposition home or self-care (01) ==
LOC: ED 11:47
DX: S29.012A Strain of muscle and tendon of back wall of thorax, initial encounter (principal); S39.012A Strain of muscle, fascia and tendon of lower back, initial encounter; V59.50XA Passenger in pick-up truck or van injured in collision with unspecified motor vehicles in traffic accident, initial encounter; Y92.410 Unspecified street and highway as the place of occurrence of the external cause; Z79.899 Other long term (current) drug therapy
CPT/HCPCS: 99281; 99283

== ENCOUNTER 2024-01-25 10:58 | Emergency (ER) | payer MEDICAID ==
[2024-01-25 11:20] VITALS: O2SAT 100
--- NOTE | 2024-01-25 12:40 | ED Physician Documentation ---
PD HPI UPPER EXT INJURY - Stated complaint Stated Complaint: RT HAND INJURY - Chief complaint Chief Complaint: Trauma Ext - History obtained from History obtained from: Patient - Additonal information Additional information: The patient comes to the emergency department chief complaint of right hand pain after getting her hand caught in a horse harness earlier today. She states the main pain is along the ulnar aspect of the hand dorsally. No finger pain. No rest pain. No other complaints at this time. 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 - Present Medications Home Medications: Ambulatory Orders Medication Instructions Recorded Confirmed lamoTRIgine [Lamictal] 150 mg PO BID 08/23/22 06/05/23 - Allergies Allergies/Adverse Reactions: Allergies Allergy/AdvReac Type Severity Reaction Status Date / Time fluconazole Allergy Anaphylaxis Verified 01/25/24 11:07 - Social History Does the pt smoke?: No Smoking Status: Never smoker Does the pt drink ETOH?: No Does the pt have substance abuse?: No - Immunizations Immunizations are current?: Yes Immunizations: TDAP current <10years - POLST Patient has POLST: No PD ED PE NORMAL - Vitals Vital signs reviewed: Yes - General General: Alert and oriented X 3, No acute distress, Well developed/nourished - HEENT HEENT: Atraumatic, EOMI, Moist mucous membranes - Neck Neck: Supple, no meningeal sign - Cardiac Cardiac: Strong equal pulses - Respiratory Respiratory: No respiratory distress - Derm Derm: Normal color, Warm and dry, No rash - Extremities Extremities: No deformity, Other (Tenderness to palpation over the ulnar aspect of right hand over the fifth metacarpal bone. No deformity. No edema. ) - Neuro Neuro: Alert and oriented X 3 - Psych Psych: Normal mood, Normal affect Results - Vitals Vitals: Vital Signs - 24 hr 01/25/24 11:07 Temperature 36.5 C Heart Rate 62 Respiratory 18 Rate Blood Pressure 132/86 H O2 Saturation 100 Oxygen O2 Source Room air - Rads (name of study) Right hand x-ray series Relevant Findings:: Final report received, See rad report PD Medical Decision Making - ED course Complexity details: reviewed results, re-evaluated patient, considered differential, d/w patient ED course: The patient was worked up with a right hand x-ray series which Showed no fracture or dislocation. I discussed with the patient that I suspected a soft tissue injury and we have discussed home management of symptoms. Departure - Departure Disposition: 01 Home, Self Care Clinical Impression: Contusion, hand Qualifiers: Encounter type: initial encounter Laterality: right Qualified Code(s): S60.221A - Contusion of right hand, initial encounter Sprain of hand, right Qualifiers: Encounter type: initial encounter Qualified Code(s): S63.91XA - Sprain of unspecified part of right wrist and hand, initial encounter Condition: Stable Instructions: ED Sprain Hand, ED Contusion Hand Comments: Your x-ray series looks good. There is no evidence of any broken bones or any malalignment. You have most likely bruised or sprained your hand. This will heal on its own in time, but you probably be sore for a few days. Please follow-up with your primary doctor as needed. You may take ibuprofen or meloxicam, plus Tylenol as needed for the pain and swelling. You may also use ice packs as needed.
[2024-01-25 12:52] VITALS: BP 122/83
--- NOTE | 2024-01-25 12:57 | XRAY Report ---
PROCEDURE: Hand 3+V RT INDICATIONS: Trauma TECHNIQUE: 3 views of the hand(s) acquired. COMPARISON: None. FINDINGS: Bones: No fractures or dislocations. No suspicious bony lesions. Soft tissues: No suspicious soft tissue calcifications or masses. IMPRESSION: No acute bony abnormality. Reviewed by: Maribel Alonso MD, PhD on 01/25/2024 11:56 AM JOSE Approved by: Maribel Alonso MD, PhD on 01/25/2024 11:56 AM JOSE Station ID: [id number]
== END 2024-01-25 12:44 | disposition home or self-care (01) ==
LOC: ED 10:58
DX: S60.221A Contusion of right hand, initial encounter (principal); W23.0XXA Caught, crushed, jammed, or pinched between moving objects, initial encounter; Y93.52 Activity, horseback riding
CPT/HCPCS: 99283